=== PATIENT | female | born 1975 | race African-American/Black ===

== ENCOUNTER 2019-11-10 07:38 | Outpatient (CLI) | payer OTHER ==
--- NOTE | 2019-11-10 09:25 | MRI ---
MRI LUMBAR SPINE WITHOUT CONTRAST: INDICATIONS: History of intervertebral disk disorder and fall. COMPARISON: None. FINDINGS: No acute fracture is evident. The conus is seen to terminate at approximately L1. The visualized retroperitoneum and paravertebral soft tissues appear within normal limits. L5-S1: There is mild facet joint degenerative changes in a small broad-based bulge. No appreciable ce ntral canal narrowing is evident. No neural foraminal narrowing is noted. L4-L5: There is a broad-based bulge with facet hypertrophy inducing mild central canal narrowing. The re is also mild neural foraminal encroachment. L3-L4: There is a mild broad-based bulge with facet hypertrophy inducing mild neural foraminal encroa chment but no definite impingement. L2-L3: There is mild facet joint degenerative change but no appreciable central canal or neural valarie inal narrowing. L1: There is no appreciable central canal or neural foraminal narrowing. IMPRESSION: 1. Mild spondylosis of the lumbar spine, most pronounced at L4-L5. There is a broad-based bulge at L4 -L5 causing mild central canal narrowing and mild neural foraminal narrowing. 2. Mild neural foraminal narrowing at L3-L4. POS: OFF
== END 2019-11-10 07:39 | disposition home or self-care (01) ==
LOC: BICMRI 07:38
PROVIDERS: ATTEND Specialist
DX: M51.16 Intervertebral disc disorders with radiculopathy, lumbar region (principal); M48.061 Spinal stenosis, lumbar region without neurogenic claudication; M47.26 Other spondylosis with radiculopathy, lumbar region
CPT/HCPCS: 72148

== ENCOUNTER 2020-04-27 23:39 | Emergency (ER) | payer OTHER | END 2020-04-28 00:14 | disposition home or self-care (01) | LOC: ERS 23:39 | DX: J30.9 Allergic rhinitis, unspecified (principal) | CPT/HCPCS: 99283 ==

== ENCOUNTER 2021-06-07 10:09 | Inpatient (IN) | payer OTHER ==
[2021-06-07] MEDS ORDERED: Dexamethasone 10 MG/ML VIAL ONE (11:06)
[2021-06-07] MEDS ORDERED: Albuterol 200 PUFF (6.7GM INHALER) ONE (11:15)
[2021-06-07 11:22] LABS: #Lymphocytes 0.6 thou/uL (1.20-3.40); #Monocytes 0.5 thou/uL (0.11-0.59); #Neutrophils 7.3 thou/uL (1.40-6.50); %Basophils 0.4 % (0.0-1.0); %Eosinophils 0.1 % (0.0-10.0); %Lymphocytes 6.7 % (21.0-51.0); %Monocytes 6.4 % (0.0-10.0); %Neutrophils 86.3 % (42.0-75.0); Mean Corpuscular HGB CONC 32.7 g/dL (32.0-36.0); Mean Corpuscular Hemoglobin 29.2 pg (27.0-31.0); Mean Corpuscular Volume 89.4 fL (78.0-98.0); Mean Platelet Volume 8.9 fL (7.4-10.4); Platelet Count 158 thou/uL (130-400); RBC Distribution Width 12.1 % (11.5-14.5); Red Blood Cell (RBC) Count 4.78 mill/uL (4.20-5.40); White Blood Cell (WBC) Count 8.5 thou/uL (4.8-10.8)
[2021-06-07] MEDS ORDERED: Acetaminophen 500 MG TAB ONE (11:26)
[2021-06-07 11:39] LABS: ALT (SGPT) 24 U/L (8-55); AST (SGOT) 36 U/L (5-34); Albumin 4.1 g/dL (3.5-5.0); Alkaline Phosphatase 73 U/L (40-110); Anion Gap 12 mmol/L (10-20); BUN (Urea Nitrogen) 10 mg/dL (7.0-18.7); Bilirubin, Total 0.6 mg/dL (0.2-1.2); Calc. Creatinine Clearance 0 mL/min (70-130); Calcium 8.9 mg/dL (7.8-10.44); Carbon Dioxide 27 mmol/L (22-29); Chloride 104 mmol/L (98-107); Globulin 3.2 g/dL (2.4-3.5); Glucose 107 mg/dL (70-105); Potassium 3.5 mmol/L (3.5-5.1); Protein, Total 7.3 g/dL (6.0-8.3); Sodium 139 mmol/L (136-145)
[2021-06-07] MEDS ORDERED: Azithromycin 500 MG VIAL ONE (12:08)
[2021-06-07] MEDS ORDERED: cefTRIAXone\\ROCEPHIN 2 GM VIAL ONE (12:08)
[2021-06-07] MEDS ORDERED: Bisacodyl 10 MG SUPP PR PRN (13:23)
[2021-06-07] MEDS ORDERED: Zolpidem Tartrate 5 MG TAB PO PRN (13:23)
[2021-06-07] MEDS ORDERED: Calcium Carbonate 500 MG ChewTAB PO PRN (13:23)
[2021-06-07] MEDS ORDERED: Loperamide HCl 2 MG CAP PO PRN (13:23)
[2021-06-07] MEDS ORDERED: Senokot S 8.6-50 MG TAB PO PRN (13:23)
[2021-06-07] MEDS ORDERED: Albuterol 200 PUFF (6.7GM INHALER) INH PRN (14:12)
[2021-06-07] MEDS ORDERED: REMDESIVIR 200 MG in Sodium Chloride 0.9% 250 ML 210 ML IV SCH (14:15)
[2021-06-07] MEDS: Benzonatate 100 MG CAP PO PRN (16:28)
[2021-06-07] MEDS: Guaifenesin DM 100-10/5 ML UDCUP PO PRN (21:14)
[2021-06-08] MEDS: HYDROcodone/Acetaminophen 5/325 mg Tablet PO PRN (00:39)
[2021-06-08] MEDS: Acetaminophen 325 MG TAB PO PRN ×3 (04:17→16:10)
[2021-06-08] MEDS: Benzonatate 100 MG CAP PO PRN (04:17)
[2021-06-08 06:57] LABS: #Basophils 0.1 thou/uL (0.0-0.2); #Monocytes 0.4 thou/uL (0.11-0.59); %Basophils 0.6 % (0.0-1.0); %Lymphocytes 9.4 % (21.0-51.0); %Monocytes 3.4 % (0.0-10.0); %Neutrophils 86.5 % (42.0-75.0); Hemoglobin 13.7 g/dL (12.0-16.0); Mean Corpuscular Hemoglobin 29.5 pg (27.0-31.0); Mean Corpuscular Volume 89.3 fL (78.0-98.0); Mean Platelet Volume 8.7 fL (7.4-10.4); Platelet Count 160 thou/uL (130-400); RBC Distribution Width 12.1 % (11.5-14.5); Red Blood Cell (RBC) Count 4.63 mill/uL (4.20-5.40); White Blood Cell (WBC) Count 10.3 thou/uL (4.8-10.8)
[2021-06-08 07:18] LABS: Anion Gap 14 mmol/L (10-20); BUN (Urea Nitrogen) 9 mg/dL (7.0-18.7); Calc. Creatinine Clearance 188 mL/min (70-130); Calcium 8.9 mg/dL (7.8-10.44); Carbon Dioxide 24 mmol/L (22-29); Chloride 105 mmol/L (98-107); Glucose 110 mg/dL (70-105); Potassium 3.7 mmol/L (3.5-5.1); Sodium 139 mmol/L (136-145)
[2021-06-08] MEDS: Enoxaparin Sodium 40 MG/0.4 ML SYRINGE SC SCH (08:31)
[2021-06-08] MEDS: Dexamethasone 4 mg/ml Vial SLOW IVP SCH (08:31)
[2021-06-08] MEDS: Zinc Sulfate 220 MG CAP PO SCH (08:32)
[2021-06-08] MEDS: Cholecalciferol 1,000 UNITS (25 MCG) TAB PO SCH (08:32)
[2021-06-08] MEDS: Ascorbic Acid 500 mg Chewable Tablet PO SCH (08:32)
[2021-06-08] MEDS: Guaifenesin DM 100-10/5 ML UDCUP PO PRN ×2 (11:15→21:49)
[2021-06-08] MEDS: REMDESIVIR 100 MG in Sodium Chloride 0.9% 250 ML 230 ML IV SCH (14:31)
[2021-06-08] MEDS: Melatonin 3 MG TAB PO PRN (21:49)
[2021-06-09] MEDS: Cholecalciferol 1,000 UNITS (25 MCG) TAB PO SCH (09:36)
[2021-06-09] MEDS: Ascorbic Acid 500 mg Chewable Tablet PO SCH (09:36)
[2021-06-09] MEDS: Enoxaparin Sodium 40 MG/0.4 ML SYRINGE SC SCH (09:37)
[2021-06-09] MEDS: Dexamethasone 4 mg/ml Vial SLOW IVP SCH (09:38)
[2021-06-09] MEDS: Zinc Sulfate 220 MG CAP PO SCH (09:39)
[2021-06-09 09:44] LABS: ALT (SGPT) 17 U/L (8-55); AST (SGOT) 37 U/L (5-34); Albumin 3.6 g/dL (3.5-5.0); Alkaline Phosphatase 63 U/L (40-110); Anion Gap 14 mmol/L (10-20); BUN (Urea Nitrogen) 13 mg/dL (7.0-18.7); Bilirubin, Total 0.4 mg/dL (0.2-1.2); Calc. Creatinine Clearance 213 mL/min (70-130); Calcium 9.1 mg/dL (7.8-10.44); Carbon Dioxide 29 mmol/L (22-29); Chloride 102 mmol/L (98-107); Globulin 3.2 g/dL (2.4-3.5); Glucose 128 mg/dL (70-105); Potassium 3.6 mmol/L (3.5-5.1); Protein, Total 6.8 g/dL (6.0-8.3); Sodium 141 mmol/L (136-145)
[2021-06-09 09:52] LABS: #Lymphocytes 1.1 thou/uL (1.20-3.40); #Monocytes 0.2 thou/uL (0.11-0.59); #Neutrophils 7.5 thou/uL (1.40-6.50); %Eosinophils 0.2 % (0.0-10.0); %Monocytes 2.4 % (0.0-10.0); %Neutrophils 85.4 % (42.0-75.0); Hemoglobin 13.8 g/dL (12.0-16.0); MDiff Complete? YES; Mean Corpuscular HGB CONC 32.5 g/dL (32.0-36.0); Mean Corpuscular Hemoglobin 29.3 pg (27.0-31.0); Mean Corpuscular Volume 90.1 fL (78.0-98.0); Mean Platelet Volume 10.6 fL (7.4-10.4); Platelet Clumps MODERATE; Platelet Count 144 thou/uL (130-400); Platelet Morphology Comment PLT clumps seen-ADEQ; RBC Distribution Width 12.3 % (11.5-14.5); RBC Morphology Normal; Red Blood Cell (RBC) Count 4.69 mill/uL (4.20-5.40); White Blood Cell (WBC) Count 8.8 thou/uL (4.8-10.8)
[2021-06-09] MEDS: Acetaminophen 325 MG TAB PO PRN ×2 (13:16→22:51)
[2021-06-09] MEDS: Benzonatate 100 MG CAP PO PRN ×2 (13:19→20:44)
[2021-06-09] MEDS: REMDESIVIR 100 MG in Sodium Chloride 0.9% 250 ML 230 ML IV SCH (15:53)
[2021-06-09] MEDS: Guaifenesin DM 100-10/5 ML UDCUP PO PRN (20:43)
[2021-06-09] MEDS: Melatonin 3 MG TAB PO PRN (20:44)
[2021-06-10] MEDS: Ondansetron ODT 4 MG TAB PO PRN ×2 (04:49→10:37)
[2021-06-10] MEDS ORDERED: hydrALAZINE 20 MG/ML VIAL SLOW IVP PRN (08:12)
[2021-06-10] MEDS: Dexamethasone 4 mg/ml Vial SLOW IVP SCH (09:01)
[2021-06-10] MEDS: Enoxaparin Sodium 40 MG/0.4 ML SYRINGE SC SCH ×2 (09:02→19:40)
[2021-06-10] MEDS: Cholecalciferol 1,000 UNITS (25 MCG) TAB PO SCH (09:02)
[2021-06-10] MEDS: Zinc Sulfate 220 MG CAP PO SCH (09:02)
[2021-06-10] MEDS: Ascorbic Acid 500 mg Chewable Tablet PO SCH (09:02)
[2021-06-10] MEDS: Benzonatate 100 MG CAP PO PRN (09:09)
[2021-06-10] MEDS: Guaifenesin DM 100-10/5 ML UDCUP PO PRN (10:13)
[2021-06-10 12:13] LABS: Actual Bicarbonate (HCO3a) 28.7 mEq/L (22-28); Calcium, Ionized (arterial) 1.15 mmol/L (1.12-1.30); Carboxyhemoglobin (COHb) 0.7 gm% (0.0-3.0); Hemoglobin (Hb) 14.9 g/dL (12.0-16.0); Potassium - ABG Lab 3.61 mmol/L (3.70-5.30); pH, Arterial 7.44 (7.35-7.45)
[2021-06-10 12:20] LABS: O2 Tension (PaO2), arterial 42.7 mmHg (80.0-100.0)
[2021-06-10 12:21] LABS: Puncture Site RRA
[2021-06-10] MEDS: REMDESIVIR 100 MG in Sodium Chloride 0.9% 250 ML 230 ML IV SCH (14:50)
[2021-06-10] MEDS ORDERED: Morphine 4 MG/ML VIAL SLOW IVP PRN (18:09)
[2021-06-10] MEDS: methylPREDNISolone Sod Succ/PF 125 MG in Sodium Chloride 0.9% 250 ML 250 ML IVPB SCH (19:20)
[2021-06-10] MEDS: Colchicine 0.6 MG TAB PO SCH (19:37)
[2021-06-10] MEDS: Acetaminophen 325 MG TAB PO PRN (19:37)
[2021-06-10] MEDS: Benzonatate 100 MG CAP PO SCH (19:38)
[2021-06-11] MEDS: Melatonin 3 MG TAB PO PRN ×2 (03:23→19:50)
[2021-06-11] MEDS: Acetaminophen 325 MG TAB PO PRN (03:23)
[2021-06-11 04:32] LABS: Band 9 % (5-11); Hemoglobin 13.5 g/dL (12.0-16.0); Lymphocytes 9 % (21-51); MDiff Complete? YES; Mean Corpuscular HGB CONC 30.8 g/dL (32.0-36.0); Mean Corpuscular Hemoglobin 27.9 pg (27.0-31.0); Mean Corpuscular Volume 90.6 fL (78.0-98.0); Mean Platelet Volume 8.2 fL (7.4-10.4); Metamyelocyte 1 % (0-0); Monocytes 5 % (0-10); Myelocyte 1 % (0-0); Neutrophil 75 % (42-75); Platelet Count 303 thou/uL (130-400); Red Blood Cell (RBC) Count 4.86 mill/uL (4.20-5.40); White Blood Cell (WBC) Count 12.9 thou/uL (4.8-10.8)
[2021-06-11 05:18] LABS: ALT (SGPT) 27 U/L (8-55); AST (SGOT) 51 U/L (5-34); Albumin 3.4 g/dL (3.5-5.0); Alkaline Phosphatase 71 U/L (40-110); Anion Gap 15 mmol/L (10-20); BUN (Urea Nitrogen) 13 mg/dL (7.0-18.7); Bilirubin, Total 0.5 mg/dL (0.2-1.2); Calc. Creatinine Clearance 205 mL/min (70-130); Carbon Dioxide 31 mmol/L (22-29); Chloride 100 mmol/L (98-107); Globulin 3.5 g/dL (2.4-3.5); Glucose 114 mg/dL (70-105); Potassium 3.8 mmol/L (3.5-5.1); Protein, Total 6.9 g/dL (6.0-8.3); Sodium 142 mmol/L (136-145)
[2021-06-11] MEDS: Enoxaparin Sodium 40 MG/0.4 ML SYRINGE SC SCH ×2 (08:04→19:51)
[2021-06-11] MEDS: Colchicine 0.6 MG TAB PO SCH ×2 (08:04→19:51)
[2021-06-11] MEDS: Ascorbic Acid 500 mg Chewable Tablet PO SCH (08:05)
[2021-06-11] MEDS: Zinc Sulfate 220 MG CAP PO SCH (08:05)
[2021-06-11] MEDS: Cholecalciferol 1,000 UNITS (25 MCG) TAB PO SCH (08:05)
[2021-06-11] MEDS: Benzonatate 100 MG CAP PO SCH ×3 (08:06→19:50)
[2021-06-11] MEDS: REMDESIVIR 100 MG in Sodium Chloride 0.9% 250 ML 230 ML IV SCH (14:53)
[2021-06-11 15:57] LABS: SARS-CoV-2 IgG Ab Reactive (NonReactive); SARS-CoV-2 IgG Index 1.94 S/CO (< 1.40)
[2021-06-11] MEDS: methylPREDNISolone Sod Succ/PF 125 MG in Sodium Chloride 0.9% 250 ML 250 ML IVPB SCH (17:31)
[2021-06-11] MEDS: Ondansetron PF 4 MG/2 ML Vial IVP PRN (22:00)
[2021-06-12] MEDS: Acetaminophen 325 MG TAB PO PRN (05:48)
[2021-06-12] MEDS: Ascorbic Acid 500 mg Chewable Tablet PO SCH (08:14)
[2021-06-12] MEDS: Zinc Sulfate 220 MG CAP PO SCH (08:15)
[2021-06-12] MEDS: Enoxaparin Sodium 40 MG/0.4 ML SYRINGE SC SCH ×2 (08:15→20:03)
[2021-06-12] MEDS: Cholecalciferol 1,000 UNITS (25 MCG) TAB PO SCH (08:15)
[2021-06-12] MEDS: Benzonatate 100 MG CAP PO SCH ×3 (08:15→20:03)
[2021-06-12] MEDS: Colchicine 0.6 MG TAB PO SCH ×2 (08:15→20:02)
[2021-06-12] MEDS: Guaifenesin DM 100-10/5 ML UDCUP PO PRN ×2 (15:01→20:39)
[2021-06-12] MEDS: methylPREDNISolone Sod Succ/PF 125 MG in Sodium Chloride 0.9% 250 ML 250 ML IVPB SCH (18:28)
[2021-06-12] MEDS: Ondansetron PF 4 MG/2 ML Vial IVP PRN (20:02)
[2021-06-12] MEDS: Melatonin 3 MG TAB PO PRN (20:03)
[2021-06-13] MEDS ORDERED: Albuterol 200 PUFF (6.7GM INHALER) INH PRN (07:03)
[2021-06-13 08:08] LABS: Actual Bicarbonate (HCO3a) 29.3 mEq/L (22-28); CO2 Tension 42.1 mmHg (35.0-45.0); Calcium, Ionized (arterial) 1.14 mmol/L (1.12-1.30); Carboxyhemoglobin (COHb) 0.7 gm% (0.0-3.0); Hemoglobin (Hb) 14.4 g/dL (12.0-16.0); Potassium - ABG Lab 4.02 mmol/L (3.70-5.30); pH, Arterial 7.46 (7.35-7.45)
[2021-06-13 08:14] LABS: Anion Gap 13 mmol/L (10-20); BUN (Urea Nitrogen) 16 mg/dL (7.0-18.7); CRP (Inflammatory) 1.35 mg/dL (= or < 0.5); Calc. Creatinine Clearance 191 mL/min (70-130); Calcium 8.8 mg/dL (7.8-10.44); Carbon Dioxide 32 mmol/L (22-29); Chloride 100 mmol/L (98-107); Glucose 131 mg/dL (70-105); Magnesium 2.2 mg/dL (1.6-2.6); Sodium 141 mmol/L (136-145)
[2021-06-13 08:30] LABS: ALV-art Gradient 292.225 mmHg (0-20); O2 Tension (PaO2), arterial 47.3 mmHg (80.0-100.0); Puncture Site LBA
[2021-06-13] MEDS: Zinc Sulfate 220 MG CAP PO SCH (08:45)
[2021-06-13] MEDS: Cholecalciferol 1,000 UNITS (25 MCG) TAB PO SCH (08:45)
[2021-06-13] MEDS: Enoxaparin Sodium 40 MG/0.4 ML SYRINGE SC SCH ×2 (08:45→21:30)
[2021-06-13] MEDS: Colchicine 0.6 MG TAB PO SCH ×2 (08:45→21:31)
[2021-06-13] MEDS: Ascorbic Acid 500 mg Chewable Tablet PO SCH (08:46)
[2021-06-13] MEDS: Benzonatate 100 MG CAP PO SCH ×3 (08:46→21:30)
[2021-06-13] MEDS: Guaifenesin DM 100-10/5 ML UDCUP PO PRN ×3 (09:15→21:32)
[2021-06-13] MEDS: Ondansetron PF 4 MG/2 ML Vial IVP PRN (12:24)
[2021-06-13] MEDS: HYDROcodone/Acetaminophen 5/325 mg Tablet PO PRN (16:08)
[2021-06-13] MEDS: methylPREDNISolone Sod Succ/PF 125 MG in Sodium Chloride 0.9% 250 ML 250 ML IVPB SCH ×2 (17:45→20:13)
[2021-06-13] MEDS: Albuterol 200 PUFF (6.7GM INHALER) INH SCH ×2 (19:07→23:54)
[2021-06-13] MEDS: Ondansetron ODT 4 MG TAB PO PRN (21:30)
[2021-06-14 06:19] LABS: Anion Gap 11 mmol/L (10-20); BUN (Urea Nitrogen) 16 mg/dL (7.0-18.7); Calc. Creatinine Clearance 210 mL/min (70-130); Calcium 8.7 mg/dL (7.8-10.44); Carbon Dioxide 32 mmol/L (22-29); Chloride 98 mmol/L (98-107); Glucose 136 mg/dL (70-105); Potassium 4.2 mmol/L (3.5-5.1); Sodium 137 mmol/L (136-145)
[2021-06-14 07:19] LABS: Band 14 % (5-11); Hemoglobin 14.4 g/dL (12.0-16.0); Lymphocytes 5 % (21-51); MDiff Complete? YES; Mean Corpuscular HGB CONC 32.2 g/dL (32.0-36.0); Mean Corpuscular Volume 89.9 fL (78.0-98.0); Mean Platelet Volume 7.8 fL (7.4-10.4); Monocytes 4 % (0-10); Neutrophil 77 % (42-75); Platelet Count 410 thou/uL (130-400); Red Blood Cell (RBC) Count 4.97 mill/uL (4.20-5.40)
[2021-06-14] MEDS: Albuterol 200 PUFF (6.7GM INHALER) INH SCH ×6 (08:09→23:56)
[2021-06-14] MEDS: Enoxaparin Sodium 40 MG/0.4 ML SYRINGE SC SCH ×2 (08:09→20:17)
[2021-06-14] MEDS: Cholecalciferol 1,000 UNITS (25 MCG) TAB PO SCH (08:10)
[2021-06-14] MEDS: Ascorbic Acid 500 mg Chewable Tablet PO SCH (08:10)
[2021-06-14] MEDS: Benzonatate 100 MG CAP PO SCH ×3 (08:10→20:18)
[2021-06-14] MEDS: Zinc Sulfate 220 MG CAP PO SCH (08:10)
[2021-06-14] MEDS: Colchicine 0.6 MG TAB PO SCH ×2 (08:12→20:18)
[2021-06-14] MEDS: Guaifenesin DM 100-10/5 ML UDCUP PO PRN ×3 (10:42→22:17)
[2021-06-14] MEDS ORDERED: MEROPENEM 1 GM/50 ML 1 GM in Premix Bag 1 BAG IVPB SCH (10:45)
[2021-06-14] MEDS ORDERED: Meropenem 2 GM in Admixture Fee 1 EACH IVPB SCH (14:00)
[2021-06-14] MEDS: MEROPENEM 1 GM/50 ML 1 GM in Premix Bag 1 BAG IVPB SCH (20:17)
[2021-06-14] MEDS: Ondansetron ODT 4 MG TAB PO PRN (20:18)
[2021-06-14] MEDS: methylPREDNISolone Sod Succ/PF 125 MG in Sodium Chloride 0.9% 250 ML 250 ML IVPB SCH (20:18)
[2021-06-15] MEDS: Albuterol 200 PUFF (6.7GM INHALER) INH SCH ×6 (03:38→22:39)
[2021-06-15] MEDS: MEROPENEM 1 GM/50 ML 1 GM in Premix Bag 1 BAG IVPB SCH ×3 (03:39→20:28)
[2021-06-15 06:16] LABS: Hemoglobin 15.3 g/dL (12.0-16.0); Mean Corpuscular HGB CONC 32.3 g/dL (32.0-36.0); Mean Corpuscular Hemoglobin 28.9 pg (27.0-31.0); Mean Corpuscular Volume 89.4 fL (78.0-98.0); Mean Platelet Volume 7.7 fL (7.4-10.4); Platelet Count 416 thou/uL (130-400); RBC Distribution Width 12.1 % (11.5-14.5); Red Blood Cell (RBC) Count 5.28 mill/uL (4.20-5.40)
[2021-06-15 06:35] LABS: Band 5 % (5-11); Lymphocytes 4 % (21-51); MDiff Complete? YES; Monocytes 11 % (0-10); Neutrophil 80 % (42-75); White Blood Cell (WBC) Count 21.6 thou/uL (4.8-10.8)
[2021-06-15 06:36] LABS: Anion Gap 14 mmol/L (10-20); BUN (Urea Nitrogen) 16 mg/dL (7.0-18.7); Calc. Creatinine Clearance 0 mL/min (70-130); Calcium 8.6 mg/dL (7.8-10.44); Carbon Dioxide 30 mmol/L (22-29); Chloride 98 mmol/L (98-107); Glucose 130 mg/dL (70-105); Potassium 4.5 mmol/L (3.5-5.1); Sodium 137 mmol/L (136-145)
[2021-06-15] MEDS: Benzonatate 100 MG CAP PO SCH ×3 (08:57→20:29)
[2021-06-15] MEDS: Ascorbic Acid 500 mg Chewable Tablet PO SCH (08:57)
[2021-06-15] MEDS: Cholecalciferol 1,000 UNITS (25 MCG) TAB PO SCH (08:57)
[2021-06-15] MEDS: Colchicine 0.6 MG TAB PO SCH (08:58)
[2021-06-15] MEDS: Zinc Sulfate 220 MG CAP PO SCH (08:58)
[2021-06-15] MEDS: Enoxaparin Sodium 40 MG/0.4 ML SYRINGE SC SCH (08:59)
[2021-06-15] MEDS: Apixaban 2.5 MG TAB PO SCH (20:28)
[2021-06-15] MEDS: guaiFENesin ER 600 MG TAB PO SCH (20:28)
[2021-06-15] MEDS: Guaifenesin DM 100-10/5 ML UDCUP PO PRN (22:12)
[2021-06-15] MEDS: Ondansetron ODT 4 MG TAB PO PRN (23:23)
[2021-06-16] MEDS: Albuterol 200 PUFF (6.7GM INHALER) INH SCH ×6 (02:39→22:15)
[2021-06-16] MEDS: MEROPENEM 1 GM/50 ML 1 GM in Premix Bag 1 BAG IVPB SCH ×2 (04:30→11:33)
[2021-06-16 06:30] LABS: #Eosinphils 0.1 thou/uL (0.0-0.7); #Lymphocytes 2.4 thou/uL (1.20-3.40); #Monocytes 0.9 thou/uL (0.11-0.59); #Neutrophils 12.7 thou/uL (1.40-6.50); %Eosinophils 0.3 % (0.0-10.0); %Lymphocytes 15.1 % (21.0-51.0); %Monocytes 5.6 % (0.0-10.0); %Neutrophils 78.9 % (42.0-75.0); Hemoglobin 15.3 g/dL (12.0-16.0); Mean Corpuscular HGB CONC 32.1 g/dL (32.0-36.0); Mean Corpuscular Hemoglobin 28.8 pg (27.0-31.0); Mean Corpuscular Volume 89.7 fL (78.0-98.0); Platelet Count 374 thou/uL (130-400); RBC Distribution Width 12.3 % (11.5-14.5); Red Blood Cell (RBC) Count 5.34 mill/uL (4.20-5.40); White Blood Cell (WBC) Count 16.1 thou/uL (4.8-10.8)
[2021-06-16 06:47] LABS: Anion Gap 14 mmol/L (10-20); BUN (Urea Nitrogen) 17 mg/dL (7.0-18.7); Calc. Creatinine Clearance 169 mL/min (70-130); Calcium 8.4 mg/dL (7.8-10.44); Carbon Dioxide 28 mmol/L (22-29); Chloride 98 mmol/L (98-107); Glucose 97 mg/dL (70-105); Potassium 4.1 mmol/L (3.5-5.1); Sodium 136 mmol/L (136-145)
[2021-06-16] MEDS: Ascorbic Acid 500 mg Chewable Tablet PO SCH (08:05)
[2021-06-16] MEDS: Cholecalciferol 1,000 UNITS (25 MCG) TAB PO SCH (08:06)
[2021-06-16] MEDS: Colchicine 0.6 MG TAB PO SCH (08:06)
[2021-06-16] MEDS: Benzonatate 100 MG CAP PO SCH ×3 (08:06→21:26)
[2021-06-16] MEDS: guaiFENesin ER 600 MG TAB PO SCH ×2 (08:06→21:26)
[2021-06-16] MEDS: Apixaban 2.5 MG TAB PO SCH ×2 (08:07→21:27)
[2021-06-16] MEDS: Zinc Sulfate 220 MG CAP PO SCH (08:07)
[2021-06-16] MEDS: Acetaminophen 325 MG TAB PO PRN (08:50)
[2021-06-16] MEDS ORDERED: predniSONE 20 MG TAB PO SCH (18:00)
[2021-06-16] MEDS: Ondansetron ODT 4 MG TAB PO PRN (22:02)
[2021-06-16] MEDS: Guaifenesin DM 100-10/5 ML UDCUP PO PRN (22:03)
[2021-06-17] MEDS: Albuterol 200 PUFF (6.7GM INHALER) INH SCH ×4 (02:22→14:15)
[2021-06-17 06:22] LABS: Hemoglobin 14.6 g/dL (12.0-16.0); Mean Corpuscular HGB CONC 33.5 g/dL (32.0-36.0); Mean Corpuscular Volume 89.6 fL (78.0-98.0); Mean Platelet Volume 7.8 fL (7.4-10.4); Platelet Count 319 thou/uL (130-400); RBC Distribution Width 12.4 % (11.5-14.5); Red Blood Cell (RBC) Count 4.87 mill/uL (4.20-5.40)
[2021-06-17 06:23] LABS: Band 3 % (5-11); Lymphocytes 11 % (21-51); MDiff Complete? YES; Monocytes 11 % (0-10); Neutrophil 75 % (42-75); Platelet Morphology Comment Appears Adequate
[2021-06-17 07:41] VITALS: BP 129/90; TEMP 97.6
[2021-06-17 08:29] LABS: Anion Gap 12 mmol/L (10-20); BUN (Urea Nitrogen) 12 mg/dL (7.0-18.7); Calc. Creatinine Clearance 194 mL/min (70-130); Calcium 8.9 mg/dL (7.8-10.44); Carbon Dioxide 29 mmol/L (22-29); Chloride 100 mmol/L (98-107); Glucose 104 mg/dL (70-105); Potassium 4.1 mmol/L (3.5-5.1); Sodium 137 mmol/L (136-145)
[2021-06-17] MEDS: Benzonatate 100 MG CAP PO SCH ×2 (08:30→14:58)
[2021-06-17] MEDS: predniSONE 20 MG TAB PO SCH ×2 (08:31→16:35)
[2021-06-17] MEDS: Ascorbic Acid 500 mg Chewable Tablet PO SCH (08:31)
[2021-06-17] MEDS: Zinc Sulfate 220 MG CAP PO SCH (08:31)
[2021-06-17] MEDS: Cholecalciferol 1,000 UNITS (25 MCG) TAB PO SCH (08:31)
[2021-06-17] MEDS: Colchicine 0.6 MG TAB PO SCH (08:31)
[2021-06-17] MEDS: guaiFENesin ER 600 MG TAB PO SCH (08:31)
[2021-06-17] MEDS: Acetaminophen 325 MG TAB PO PRN (08:34)
[2021-06-17] MEDS: Apixaban 2.5 MG TAB PO SCH (08:34)
== END 2021-06-17 18:21 | disposition home or self-care (01) | DRG 871 ==
LOC: ERS 10:09 → ERHOLD 12:59 → T4-A 14:44 → CCU 06-10 15:07 → T4-B 06-14 21:37
PROVIDERS: ADMIT Internal Medicine; ATTEND Family Medicine
PROC: XW033E5 Introduction of Remdesivir Anti-infective into Peripheral Vein, Percutaneous Approach, New Technology Group 5 (ICD-10-PCS; principal; 2021-06-07)
PROC: 8E0ZXY6 Isolation (ICD-10-PCS; 2021-06-07)
DX: A41.89 Other specified sepsis (principal); U07.1 COVID-19; J96.01 Acute respiratory failure with hypoxia; J12.82 Pneumonia due to coronavirus disease 2019; Z68.41 Body mass index [BMI] 40.0-44.9, adult; R65.20 Severe sepsis without septic shock; E66.01 Morbid (severe) obesity due to excess calories; Z90.710 Acquired absence of both cervix and uterus; Z90.89 Acquired absence of other organs; Z98.890 Other specified postprocedural states
CPT/HCPCS: 36415; 36600; 71045; 80048; 80053; 82728; 82805; 83605; 83735; 83880; 84484; 85025; 85379; 86140; 86769; 87040; 93005; 94760; 96374; J0456; J0696; J1100; J1650; J2185; J2405; J2930; J7050; J7512; Q0162

== ENCOUNTER 2021-08-10 09:08 | Outpatient (CLI) | payer OTHER | END 2021-08-10 09:09 | disposition home or self-care (01) | LOC: BICRAD 09:08 | PROVIDERS: ATTEND Nurse Practitioner Family | DX: R06.00 Dyspnea, unspecified (principal); B94.8 Sequelae of other specified infectious and parasitic diseases; R91.8 Other nonspecific abnormal finding of lung field | CPT/HCPCS: 71046 ==

== ENCOUNTER 2021-09-26 11:14 | Outpatient (CLI) | payer OTHER | END 2021-09-26 11:15 | disposition home or self-care (01) | LOC: RAD 11:14 | PROVIDERS: ATTEND Internal Medicine Critical Care Medicine | DX: R06.00 Dyspnea, unspecified (principal) | CPT/HCPCS: 71046 ==